=== PATIENT | female | born 1990 | race African-American/Black ===

== ENCOUNTER 2016-04-12 15:32 | Emergency (ER) | payer MEDICAID, OTHER ==
[~2016-04-12] VITALS: Ht 157.5 cm; Wt 59.0 kg
[2016-04-12 15:32] VITALS: BP 124/52
== END 2016-04-12 16:46 | disposition home or self-care (01) ==
LOC: ER 15:34
DX: R21 Rash and other nonspecific skin eruption (principal)
CPT/HCPCS: 99282; A4606; Z7610

== ENCOUNTER 2018-12-10 10:19 | Emergency (ER) | payer MEDICAID, OTHER ==
[~2018-12-10] VITALS: Ht 152.4 cm; Wt 54.0 kg
[2018-12-10 10:29] VITALS: BP 113/75
[2018-12-10] MEDS ORDERED: CYCLOBENZAPRINE 10 MG TABLET PO ONE (11:00)
[2018-12-10] MEDS ORDERED: IBUPROFEN 600 MG TABLET PO ONE ×2 (11:00→11:12)
[2018-12-10] MEDS ORDERED: CYCLOBENZAPRINE 10 MG TABLET ONE (11:12)
== END 2018-12-10 11:27 | disposition home or self-care (01) ==
LOC: ER 10:25
DX: S16.1XXA Strain of muscle, fascia and tendon at neck level, initial encounter (principal); F43.9 Reaction to severe stress, unspecified; W18.09XA Striking against other object with subsequent fall, initial encounter; Y93.89 Activity, other specified; Y92.89 Other specified places as the place of occurrence of the external cause; Y99.8 Other external cause status